=== PATIENT | male | born 1990 | race Caucasian/White ===

== ENCOUNTER 2023-06-27 12:51 | Emergency (ER) | payer BC, OTHER ==
[~2023-06-27] VITALS: Ht 177.8 cm; Wt 86.2 kg
--- NOTE | 2023-06-27 13:28 | NUR ---
DR Mooney at the bedside for MSE.
--- NOTE | 2023-06-27 14:11 | NUR ---
Pt was provided sling for injured shoulder.
[2023-06-27] MEDS ORDERED: OXYC5TAB3 PO (14:14)
[2023-06-27] MEDS ORDERED: IBUP-1957 PO (14:14)
--- NOTE | 2023-06-27 14:16 | NUR ---
Pt is now at 98-100% SpO2. Safety measures in place. Will continue to monitor.
[2023-06-27 14:51] VITALS: BP 137/92; TEMP 98.6; O2SAT 99
--- NOTE | 2023-06-27 14:51 | NUR ---
Patient discharged to home in stable condition. Written and verbal after care instructions given. Patient verbalizes understanding of instructions. Stressed follow up or return to ER for worsening s/s.
== END 2023-06-27 14:52 | disposition home or self-care (01) ==
LOC: ER 12:51
DX: S43.001A Unspecified subluxation of right shoulder joint, initial encounter (principal); Z79.1 Long term (current) use of non-steroidal anti-inflammatories (NSAID); Z79.899 Other long term (current) drug therapy; W01.0XXA Fall on same level from slipping, tripping and stumbling without subsequent striking against object, initial encounter; Y93.89 Activity, other specified; Y92.89 Other specified places as the place of occurrence of the external cause; Y99.8 Other external cause status
CPT/HCPCS: 73030; A4663